=== PATIENT | male | born 1965 | race Two or more races ===

== ENCOUNTER 2024-09-12 12:07 | Emergency (ER) | payer MEDICARE, MEDICAID ==
[~2024-09-12] VITALS: Ht 167.6 cm; Wt 75.0 kg
--- NOTE | 2024-09-12 12:51 | ED.PDOC ---
Psychiatric HPI Comments 59 y.o male presents to the ED via EMS for an evaluation of mental health. EMS reports patient was seen at [facility] one week ago due to abdominal pain, was diagnosed with bowel resection and had a colostomy placed in. EMS reports during his stay at that hospital, patient was not given his [place], started to present with behavior issues and friend picked him up to drop him off his home. Family is now concerned that patient mental state is worsening, has been off his lithium for one week. Patient reports while he was at [facility], he saw people in his room who wanted to take him on a ride. He was unable to provide who these people were. Time Seen by MD: 12:13 Reviewed Notes: Nurses Notes, Certified Vehicle Fire Investigator Notes, Medications, Allergies Information Source: Patient Mode of Arrival: EMS Severity: Unable to Care for Self Severity of Pain: None Severity of Mental Status: Moderate Severity of Symptoms: Moderate Timing: Days Duration: Since onset Presents with: Bizarre Behavior Ingestion: None Current substance abuse: None Stressors: None Associated signs and symptoms: Hallucinations Past Medical History Past Medical History (Other): Bipolar disorder Surgical History: Denies all surgeries Family History Family History: Reviewed,noncontributory to illness Social History Smoker: Non-Smoker Alcohol: Denies ETOH Use Drugs: Denies Drug Use Lives In: Home Constitutional: denies: chills, diaphoresis, fatigue, fever, malaise, sweats, weakness, others EENTM: denies: blurred vision, double vision, ear bleeding, ear discharge, ear drainage, ear pain, ear ringing, eye pain, eye redness, hearing loss, mouth pain, mouth swelling, nasal discharge, nose bleeding, nose congestion, nose pain, photophobia, tearing, throat pain, throat swelling, voice changes, others Respiratory: denies: cough, hemoptysis, orthopnea, SOB at rest, shortness of breath, SOB with excertion, stridor, wheezing, others Cardiovascular: denies: chest pain, dizzy spells, diaphoresis, Dyspnea on exertion, edema, irregular heart beat, left arm pain, lightheadedness, palpitations, PND, syncope, others Gastrointestinal: denies: abdomen distended, abdominal pain, blood streaked bowels, constipated, diarrhea, dysphagia, difficulty swallowing, hematemesis, melena, nausea, poor appetite, poor fluid intake, rectal bleeding, rectal pain, vomiting, others Genitourinary: denies: burning, dysuria, flank pain, frequency, hematuria, incontinence, penile discharge, penile sore, pain, testicle pain, testicle swel ling, urgency, others Neurological: denies: dizziness, fainting, headache, left sided numbness, left sided weakness, numbness, paresthesia, pre-existing deficit, right sided numbness, right sided weakness, seizure, speech problems, tingling, tremors, weakness, others Musculoskeletal: denies: back pain, gout, joint pain, joint swelling, muscle pain, muscle stiffness, neck pain, others Integumetry: denies: bruises, change in color, change in hair/nails, dryness, laceration, lesions, lumps, rash, wounds, others Allergic/Immunocompromised: denies: Difficulty Healing, Frequent Infections, Hives, Itching, others Hematologic/Lymphatic: denies: anemia, blood clots, easy bleeding, easy bruising, swollen glands, others Endocrine: denies: excessive hunger, excessive sweating, excessive thirst, excessive urination, flushing, intolerance to cold, intolerance to heat, unexplained weight gain, unexplained weight loss, others Psychiatric: reports: bipolar disorder; denies: anxiety, depression, hopeless, panic disorder, schizophrenia, sleepless, suicidal, others Physical Exam General Appearance: No Apparent Distress, Normal HEENT: Normal ENT Inspection, Pharynx Normal, TMs Normal Neck: Full Range of Motion, Non-Tender, Normal, Normal Inspection Respiratory: Chest Non-Tender, Lungs Clear, No Accessory Muscle Use, No Respiratory Distress, Normal Breath Sounds Cardiovascular: No Edema, No JVD, No Murmur, No Gallop, Normal Peripheral Pulses, Regular Rate/Rhythm Breast Exam: Deferred Gastrointestinal: No Organomegaly, Non Tender, No Pulsatile Mass, Normal Bowel Sounds, Soft Genitalia: Deferred Pelvic: Deferred Rectal: Deferred Extremities: No calf tenderness, Normal capillary refill, Normal inspection, Normal range of motion, Non-tender, No pedal edema Musculoskeletal : Apperance: Normal Neurologic: Alert, manager pulmonary II-XII nml as Tested, No Motor Deficits, Normal Affect, Normal Mood, No Sensory Deficits Cerebellar Function: Normal Reflexes: Normal Skin: Dry, Normal Color, Warm Lymphatic: No Adenopathy Was a procedure done? Was a procedure done?: No Psych Differential Dx Psych. Differential Dx: Bipolar Disorder, Panic Disorder OD Differential Dx: Hallucinations X-Ray, Labs, Meds, VS Vital Signs Date Time Temp Pulse Resp B/P (MAP) Pulse Ox O2 Delivery O2 Flow Rate FiO2 09/12/24 19:25 16 99 Room Air* 0 21 09/12/24 19:25 97.6 87 17 122/89 (100) 95 97.6 09/12/24 19:04 93 18 95 Room Air* 0 21 09/12/24 19:04 93 18 122/89 (100) 95 09/12/24 16:00 92 16 124/89 (101) 92 09/12/24 13:50 86 17 117/78 (91) 93 09/12/24 12:15 98.7 92 16 138/81 (100) 96 Lab Test 09/12/24 17:36 Range/Units White Blood Count 15.3 H 4.4-10.8 10^3/uL Red Blood Count 4.34 L 4.5-5.90 10^6/uL Hemoglobin 11.3 L 13.5-17.5 g/dL Hematocrit 35.6 L 41.0-53.0 % Mean Corpuscular Volume 82.0 80.0-100.0 fL Mean Corpuscular Hemoglobin 26.1 L 28.0-32.0 pg Mean Corpuscular Hemoglobin Concent 31.9 L 32.0-36.0 g/dL Red Cell Distribution Width 19.3 H 11.8-14.3 % Platelet Count 289 140-450 10^3/uL Mean Platelet Volume 7.0 6.9-10.8 fL Neutrophils (%) (Auto) 88.7 H 37.0-80.0 % Lymphocytes (%) (Auto) 7.4 L 10.0-50.0 % Monocytes (%) (Auto) 3.8 0.0-12.0 % Eosinophils (%) (Auto) 0.0 0.0-7.0 % Basophils (%) (Auto) 0.1 0.0-2.0 % Neutrophils # (Auto) 13.6 H 1.6-8.6 10 ^3/uL Lymphocytes # (Auto) 1.1 0.4-5.4 10 ^3/uL Monocytes # (Auto) 0.6 0-1.3 10 ^3/uL Eosinophils # (Auto) 0 0-0.8 10 ^3/uL Basophils # (Auto) 0 0-0.2 10 ^3/uL Nucleated Red Blood Cells 0.0 % Sodium Level 134 L 136-145 mmol/L Potassium Level 4.2 3.5-5.1 mmol/L Chloride Level 103 98-107 mmol/L Carbon Dioxide Level 22 20-31 mmol/L Anion Gap 9 5-15 Blood Urea Nitrogen 11 9-23 mg/dL Creatinine 0.59 L 0.700-1.30 mg/dL Glomerular Filtration Rate Calc 112 >90 mL/min BUN/Creatinine Ratio 18.6 10.0-20.0 Serum Glucose 90 74-106 mg/dL Calcium Level 8.8 8.7-10.4 mg/dL Plasma/Serum Blood Alcohol < 3.0 <10 mg/dL Time of 1ST Reevaluation: 12:51 Reevaluation 1ST: Unchanged Time of 2ND Reevaluation: 18:24 Reevaluation 2ND: Improved Patient Education/Counseling: Diagnosis, Treatment Family Education/Counseling: No Family Present Change of Shift?: Yes (care will be transferred to Dr Nickerson at 10pm) Additional Information Independent Historian: Paramedics cbc, chemistry, drug screen, etoh levels were ordered and results reviewed telepsych consult is pending ct abdomen and pelvis without contrast was ordered, despite of the patient not having any pain, but his wbc is elevated and he just had colectomy/colostomy at [facility]], prior to his signing out AMA. the concerns is for any post op infections. the result reviewed. agree with radiology. in the context of this case, pt was not given contrast here, and he just had colostomy for ruptured diverticulitis( per pt). this is likely the cause of the ct finding, rather than an acute process pt was on lithium, but was not given this due to his colostomy surgery. as a result he is having hallucinations that there rweree "people" he did not know "from the streets" plotting with staff at [facility]3] to " take him for a ride." he has not exhibited any abnormal behaviors here and is trusting with us, however, he is convinced of what happened in [facility]] was real, which led to him signing out. i will consult telepsych for mental health eval and medication recommendations before he is discharged in a safe condition. i will sign out to Dr Nickerson at shift change Departure 1 Departure Time of Disposition: 21:23 Impression: Primary Impression: Hallucination, visual Additional Impressions: Hallucinations S/P colostomy Disposition: 30 STILL A PATIENT Condition: Stable Critical Care Note Critical Care Time?: Yes (55 min-critical care time only) Critical care comment: due to the likelihood of patients condition suddenly deteriorating, the care requires my highest level of attention, readiness to intervene. my critical care include assessing and reassessing of patient's condition, response to treatments, ordering the appropriate tests, reviewing the results, ordering of treatments, discussing the care with medical personnel and consultants, and formulating a treatment plan, as well a reviewing various medical records. this include at least 50% face-face interaction, and does not include any procedures Stability Stability form required: No I personally scribed for MORRO PEARSON MD ([facility] on 09/12/24 at 12:51. Electronically submitted by Heidi Lopez ([facility] I personally scribed for MORRO PEARSON MD ([email or web address]) on 09/12/24 at 13:17. Electronically submitted by Heidi Lopez ([facility]). MORRO PEARSON MD Sep 12, 2024 12:51
[2024-09-12 18:22] LABS: Basophils # (auto) 0 10 ^3/uL (0-0.2); Basophils % (auto) 0.1 % (0.0-2.0); Eosinophils # (auto) 0 10 ^3/uL (0-0.8); Hematocrit 35.6 % (41.0-53.0); Hemoglobin 11.3 g/dL (13.5-17.5); Lymphocytes # (auto) 1.1 10 ^3/uL (0.4-5.4); Lymphocytes % (auto) 7.4 % (10.0-50.0); Mean Corpuscular Hemoglobin 26.1 pg (28.0-32.0); Mean Corpuscular Hgb Conc. 31.9 g/dL (32.0-36.0); Monocytes # (auto) 0.6 10 ^3/uL (0-1.3); Monocytes % (auto) 3.8 % (0.0-12.0); Neutrophils # (auto) 13.6 10 ^3/uL (1.6-8.6); Neutrophils % (auto) 88.7 % (37.0-80.0); Platelet Count (auto) 289 10^3/uL (140-450); Red Blood Cells 4.34 10^6/uL (4.5-5.90); Red Cell Distribution Width 19.3 % (11.8-14.3); White Blood Cell 15.3 10^3/uL (4.4-10.8)
[2024-09-12 18:34] LABS: Anion Gap 9 (5-15); Carbon Dioxide 22 mmol/L (20-31); Chloride 103 mmol/L (98-107); Potassium 4.2 mmol/L (3.5-5.1)
[2024-09-12 18:35] LABS: Calcium 8.8 mg/dL (8.7-10.4); Sodium 134 mmol/L (136-145)
[2024-09-12 18:40] LABS: BUN/Creatinine Ratio 18.6 (10.0-20.0); Blood Urea Nitrogen 11 mg/dL (9-23); Glucose 90 mg/dL (74-106)
[2024-09-12 18:44] LABS: Blood Alcohol < 3.0 mg/dL (<10)
[2024-09-12 19:04] VITALS: PULSE 93; RESP 18; O2SAT 95
[2024-09-12 19:25] VITALS: RESP 16; TEMP 97.6; O2SAT 99
--- NOTE | 2024-09-12 20:49 | DVH ---
Exam: CT CT AB PEL WO CON-NO ORAL OR IV History: recent colostomy, r/o complications Comparison Study: None available at time of dictation. TECHNIQUE: Multidetector CT of the abdomen was performed from lung bases to pubic symphysis. Imaging was performed without IV contrast. Axial, coronal and sagittal multiplanar reformats were obtained fr om the axial data set by the technologist. Radiation Dose Information: CT Dose: CTDI volume is 8.77 mGy. Dose-length product is 509.34 mGy*cm FINDINGS: Evaluation of solid organs is limited due to lack of intravenous contrast use. Findings: Lung Bases: Bibasilar areas of atelectasis and small effusions.. Normal heart size. No pleural or pe ricardial effusion. Liver: The liver is normal in size. No focal lesions. Gallbladder and Biliary Tree: Calcified gallstones Spleen: Unremarkable Pancreas: The pancreas is grossly normal in appearance. Adrenal Glands: Unremarkable Kidneys: Kidneys are grossly normal without calculi or hydronephrosis. Bladder: Grossly unremarkable for degree of distention. Bowel: The stomach is grossly normal in appearance. Small bowel and colon are normal in caliber and d istribution. Contrast in the colon. There is questionable free contrast in the right lower quadrant. The appendix is not visualized; however, no secondary findings of acute appendicitis identified. Ascites: Absent Lymphadenopathy: No mesenteric, retroperitoneal or periportal lymphadenopathy. Abdominal Wall and Mesentery: Pneumoperitoneum suggesting perforated viscus or postoperative or postp rocedural changes.. Vasculature: The visualized abdominal aorta is normal in size and caliber. Evaluation of abdominal a nd pelvic vessels is limited due to lack of intravenous contrast. Pelvic Organs: Unremarkable Musculoskeletal: No aggressive focal bony lesions, acute fractures or dislocation. Skin jae in th e anterior abdominal wall. Soft tissues: Unremarkable IMPRESSION: 1. Large pneumoperitoneum consistent with perforated viscus or previous procedure that May account fo r this such as abdominal surgery or oral laparoscopic procedures. 2. Findings suggest contrast in the peritoneal cavity in the right lower quadrant. 3. Skin closure jae in the anterior abdominal wall. CRITICAL FINDINGS Critical Result: Pneumoperitoneum free contrast in the peritoneum on the right. Findings discussed with DAVID BERKOWITZ, at 09/12/2024 08:38 PM, and acknowledged receipt and understandin g of the findings. .. Radiation optimization: All CT scans at this facility use at least one of these dose optimization vernon hniques: automated exposure control mA and/or kV adjustment per patient size (includes targeted exam s where dose is matched to clinical indication) or iterative reconstruction.
--- NOTE | 2024-09-12 21:41 | DVHINCON2 ---
Date of Service if different f: Sep 12, 2024 Time of Service: 21:41 Consult Consult Note PSYCHIATRY ED NEW CONSULT HPI: 59 yo M pt with PPH of schizophrenia presents to ED BIBA for safety, psychiatric stabilization and possible med initiation/optimization in setting of AMS and psychosis. Psychiatry consulted for safety evaluation and recommendations in context of current presentation Per pt, reports he has been off of all psychotropic meds (lithium, gabapentin, ?olanzapine) for past week during recent hospitalization at [facility] s/p bowel resection for chron's and was rx'd morphine. Since being off of psychotropics, pt reports confusion, vague NC/NT AVH, anxiety, paranoia of being persecuted by hospital staff. Also reports some depressed mood and fatigue but denies hopelessness, helplessness, isolation, negative thoughts, loss of interest, or anhedonia. Sleep/appetite/energy - poor. Adamantly denies SI/HI. No overt manic, major depressive, cognitive, dissociative phenomena, panic, or somatic symptoms noted. Appears future oriented/goal directed. Denies acute psychosocial stressors. Pt currently does have psychiatrist out in community with upcoming appt next month. Currently rx'd Li, Gabapentin, olanzapine. Denies any hx of med noncompliance. Denies ETOH, THC or IDU Never , no children, unemployed/SSI, lives by self, limited support system noted. Unknown trauma hx. Unknown FH. Does not have hx of suicide attempts, SIB/PSG, or prior psych hospitalizations/5150. Denies history of violence, unprovoked aggression, or assaultive behaviors. Does not have access to firearms. Currently denies SI/HI. No safety concerns noted during encounter. MSE: General Appearance/Behavior: Alert and awake; appears older than stated age, thin appearing, calm and cooperative, fair eye contact, no PMA/PMR Speech: coherent, rrr Thought Process: linear, logical, appears goal-directed Thought Content: Abnormal Thoughts and Perceptions: possibly Homicidality / Violent Thoughts: None Suicidality: adamantly denies SI Hallucinations: (+) AVH Delusions: (+) paranoia/ persecutory delusions Obsessions /compulsions : None Judgment and Insight: fair judgment with fair insight Mood & Affect: "up and down" with mood-congruent, mildly constricted/restricted, appropriate Orientation: oriented to person, place, time Attention/Concentration: appears intact Memory: grossly intact Language: no unusual or inappropriate language Assessment: 59 yo M pt with PPH of schizophrenia presents to ED BIBA for safety, psychiatric stabilization and possible med initiation/optimization in setting of AMS and psychosis. Currently denies SI/HI. Linear and appears future oriented/ goal directed in thought although recent persistence of NC/NT AVH and paranoia Pts presenting MH symptoms appear more secondary to being off of psychotropics for past week during recent hospitalization at [facility] s/p bowel resection for chron's and was rx'd morphine in addition to possible clearing delirium in setting of recent surgery Presently, pt does not show any signs of immediate danger to self or others that would warrant a higher level of care. Thus, pt does not meet criteria for 5150 or involuntary inpatient psych admission as is not DTS, DTO or GD although voluntary inpt psychiatric hospitalization was offered but pt respectfully declined. Also declined further ED observation/reassessment. No acute safety concerns noted. Acute suicide risk is nonexistent to relatively low. Pt currently does have psychiatrist out in community with upcoming appt next month Meantime, do feel that patient would benefit from an antipsychotic to address psychosis and anxiety symptoms that have been exacerbated prior to this ad mission. Primary Diagnosis: Psychotic disorder unspecified. Schizophrenia, hx Plan: Does not warrant involuntary inpatient psychiatric hospitalization or 5150 hold at this time No acute safety concerns Pt can be safely discharged back to current residence Resume outpatient psychotropics - Li and Gabapentin (pt plans to take them at home upon discharge) Recommend discharging pt on Olanzapine 5 mg qhs x 3 weeks until next f/u appt with outpt psychiatry No med changes or additional meds needed at this time Risks/benefits/alternative treatments discussed, informed consent provided by pt Instructed pt to call [phone] or return to ED if mood symptoms worsen or new onset SI/HI upon discharge Pt verbalized understanding and is receptive to above tx plan This case was discussed with ED nurse/provider and all parties in agreement with above tx plan Srinivasa Ortiz MD Plan discussed with: Patient SRINIVASA ORTIZ MD Sep 12, 2024 21:41
[2024-09-12] MEDS ORDERED: OLAN1TAB7 PO (22:01)
[2024-09-13 00:30] VITALS: BP 125/84; PULSE 79; RESP 17; O2SAT 97
== END 2024-09-13 02:40 | disposition home or self-care (01) ==
LOC: ER 12:07 → EDSEX 12:07 → EDBD 12:07 → ER 09-13 02:15
DX: R44.1 Visual hallucinations (principal)
CPT/HCPCS: 36415; 74176; 80048; 80320; 85025

== ENCOUNTER 2024-09-13 03:09 | Emergency (ER) | payer MEDICARE, MEDICAID ==
[~2024-09-13 03:09] MED LIST: OLAN1TAB7 PO
== END 2024-09-13 03:10 | disposition left against medical advice (07) ==
LOC: ER 03:09
DX: T14.8XXA Other injury of unspecified body region, initial encounter (principal); Z53.21 Procedure and treatment not carried out due to patient leaving prior to being seen by health care provider; X58.XXXA Exposure to other specified factors, initial encounter; Y93.89 Activity, other specified; Y92.89 Other specified places as the place of occurrence of the external cause; Y99.8 Other external cause status

== ENCOUNTER 2024-09-13 06:19 | Emergency (ER) | payer MEDICARE, MEDICAID | END 2024-09-13 06:49 | disposition left against medical advice (07) | LOC: ER 06:19 | DX: T14.8XXA Other injury of unspecified body region, initial encounter (principal); Z53.21 Procedure and treatment not carried out due to patient leaving prior to being seen by health care provider; X58.XXXA Exposure to other specified factors, initial encounter; Y93.89 Activity, other specified; Y92.89 Other specified places as the place of occurrence of the external cause; Y99.8 Other external cause status ==